=== PATIENT | male | born 1955 | race African-American/Black ===

== ENCOUNTER 2021-05-15 14:07 | Observation (INO) | payer OTHER ==
[2021-05-15 14:21] VITALS: BMI 26.8
[2021-05-15] MEDS ORDERED: MECLIZINE HCL 25 MG TABLET (FP) PO ONE (15:26)
[2021-05-15] MEDS ORDERED: METOCLOPRAMIDE HCL INJECTION 10 MG/2 ML VIAL IVPUSH ONE (15:26)
[2021-05-15] MEDS ORDERED: SODIUM CHLORIDE 0.9% 500 ML INFUS.BAG IV ONE (15:27)
[2021-05-15] MEDS ORDERED: METOCLOPRAMIDE HCL INJECTION 10 MG/2 ML VIAL ONE (16:01)
[2021-05-15] MEDS ORDERED: MECLIZINE HCL 25 MG TABLET (FP) ONE (16:01)
[2021-05-15 16:20] LABS: BASO % 0.3 % (0-2.0); EOS % 0.2 % (0-4.5); HEMATOCRIT 46.2 % (35.4-49); HEMOGLOBIN 15.4 GM/dL (11.7-16.9); LYMPH % 11.3 % (8-40); MCH 29.6 pg (25.7-33.7); MCHC 33.4 g/dl (32.0-35.9); MEAN CELL VOLUME 88.8 fl (80-96); MONO % 4.7 % (3.8-10.2); NEUT % 83.5 % (42.8-82.8); PLATELET COUNT 319 10^3/uL (134-434); RDW 13.7 % (11.9-15.9); WHITE BLOOD COUNT 16.4 K/mm3 (4.0-10.0)
[2021-05-15 16:41] LABS: CHLORIDE 102 mmol/L (98-107); SODIUM 139 mmol/L (136-145)
[2021-05-15 16:44] LABS: CALCIUM 9.4 mg/dL (8.5-10.1)
[2021-05-15 16:45] LABS: ANION GAP 9 MMOL/L (8-16); BLOOD UREA NITROGEN 15.3 mg/dL (7-18); CO2 28 mmol/L (21-32); GLUCOSE,RANDOM 140 mg/dL (74-106)
[2021-05-15 16:48] LABS: SGOT/AST 27 U/L (15-37); SGPT/ALT 47 U/L (13-61)
[2021-05-15 16:50] LABS: BILIRUBIN,TOTAL 0.3 mg/dL (0.2-1)
[2021-05-15 16:51] LABS: ALK PHOS 81 U/L (45-117)
[2021-05-15] MEDS ORDERED: MECLIZINE HCL 25 MG TABLET (FP) PO PRN (23:12)
[2021-05-15] MEDS ORDERED: METOCLOPRAMIDE HCL INJECTION 10 MG/2 ML VIAL IVPUSH PRN (23:12)
[2021-05-16 05:16] VITALS: TEMP 99
[2021-05-16 09:11] LABS: BASO % 0.4 % (0-2.0); EOS % 0.2 % (0-4.5); HEMATOCRIT 45.6 % (35.4-49); HEMOGLOBIN 15.3 GM/dL (11.7-16.9); LYMPH % 19.2 % (8-40); MCH 29.7 pg (25.7-33.7); MCHC 33.5 g/dl (32.0-35.9); MEAN CELL VOLUME 88.8 fl (80-96); MEAN PLT VOLUME 8.7 fl (7.5-11.1); MONO % 7.1 % (3.8-10.2); NEUT % 73.1 % (42.8-82.8); PLATELET COUNT 299 10^3/uL (134-434); RBC 5.13 M/mm3 (4.00-5.60); RDW 13.4 % (11.9-15.9); WHITE BLOOD COUNT 12.4 K/mm3 (4.0-10.0)
[2021-05-16 09:47] LABS: BLOOD UREA NITROGEN 11.3 mg/dL (7-18)
[2021-05-16 09:49] LABS: CALCIUM 9.2 mg/dL (8.5-10.1)
[2021-05-16 09:53] LABS: CREATININE 0.7 mg/dL (0.55-1.3)
[2021-05-16 12:22] VITALS: BP 170/90; PULSE 88
== END 2021-05-16 12:22 | disposition home or self-care (01) ==
LOC: JER 14:07 → JERBED 22:58 → J5S 05-16 04:47
PROVIDERS: ADMIT Hospitalist; ATTEND Family Medicine
PROC: 3E033GC Introduction of Other Therapeutic Substance into Peripheral Vein, Percutaneous Approach (ICD-10-PCS; principal; 2021-05-15)
DX: R42 Dizziness and giddiness (principal); R11.2 Nausea with vomiting, unspecified
CPT/HCPCS: 36415; 70450-TC; 80048; 80053; 84484; 85025; 93005; 93010; 96361; 96374; 99285-25; C9803; G0378; U0003; U0005

== ENCOUNTER 2023-01-21 08:31 | Emergency (ER) | payer OTHER ==
[2023-01-21 08:42] VITALS: BP 137/76; PULSE 86; RESP 20; TEMP 98; BMI 26.4
[2023-01-21] MEDS ORDERED: MECLIZINE HCL 25 MG TABLET (FP) PO ONE (09:56)
[2023-01-21] MEDS ORDERED: MECLIZINE HCL 25 MG TABLET (FP) ONE (09:59)
== END 2023-01-21 10:49 | disposition home or self-care (01) ==
LOC: JER 08:31
DX: R42 Dizziness and giddiness (principal)
CPT/HCPCS: 93005; 93010; 99283-25